=== PATIENT | male | born 1970 | race Hispanic/Latino ===

== ENCOUNTER 2024-07-14 00:54 | Emergency (ER) | payer OTHER ==
[2024-07-14] MEDS ORDERED: Ketorolac Tromethamine 60 MG/2 ML VIAL ONE (01:14)
[2024-07-14] MEDS ORDERED: AMOXicillin 250 MG CAP ONE (01:14)
== END 2024-07-14 01:45 | disposition home or self-care (01) ==
LOC: BURERS 00:54
DX: K02.9 Dental caries, unspecified (principal); R03.0 Elevated blood-pressure reading, without diagnosis of hypertension
CPT/HCPCS: 96372; 99282; J1885